=== PATIENT | female | born 1930 | race Caucasian/White ===

== ENCOUNTER 2016-05-06 07:47 | Outpatient (CLI) | payer MEDICARE, OTHER | END 2016-05-06 07:48 | disposition home or self-care (01) | DX: I10 Essential (primary) hypertension (principal); E11.9 Type 2 diabetes mellitus without complications; E78.5 Hyperlipidemia, unspecified; I48.91 Unspecified atrial fibrillation ==

== ENCOUNTER 2016-07-24 12:37 | Outpatient (CLI) | payer MEDICARE, OTHER | END 2016-07-24 12:38 | disposition home or self-care (01) | DX: I47.2 Ventricular tachycardia (principal); I51.7 Cardiomegaly; I34.0 Nonrheumatic mitral (valve) insufficiency; Z95.0 Presence of cardiac pacemaker ==

== ENCOUNTER 2016-07-29 07:25 | Outpatient (CLI) | payer MEDICARE, OTHER ==
[2016-07-29 13:05] LABS: CALCIUM 9.2 mg/dL (8.5-10.3); CREATININE 0.9 mg/dL (0.4-1.0); MAGNESIUM 1.7 mg/dL (1.7-2.8); POTASSIUM 3.5 mmol/L (3.5-5.0)
== END 2016-07-29 07:26 | disposition home or self-care (01) ==
LOC: LAB.WCP 07:25
PROVIDERS: ATTEND Internal Medicine
DX: I47.2 Ventricular tachycardia (principal)
CPT/HCPCS: 36415; 80048; 83735

== ENCOUNTER 2016-07-31 10:07 | Outpatient (CLI) | payer MEDICARE, OTHER ==
--- NOTE | 2016-08-01 15:24 | Mammography Report ---
DIGITAL SCREENING MAMMOGRAM: 07/31/2016 CLINICAL INDICATION: An 85-year-old with personal history of right breast cancer, status post lumpect tony and radiation therapy, for screening. COMPARISON: 07/2015, 07/2014, 04/2013, 12/2012, 05/2012, 04/2012, 03/2011, 02/2010, 01/2009. TECHNIQUE: Routine CC and MLO projections were obtained of the breasts. FINDINGS: The breasts again demonstrate heterogeneously dense fibroglandular parenchyma bilaterally. Postoperative and posttreatment changes in the right breast are stable. Postbiopsy changes in the le ft breast are stable. Coarse and punctate, typically benign calcifications are present. No suspicious masses, clustered microcalcifications, or regions of architectural distortion are identified. IMPRESSION: BENIGN FINDINGS. RECOMMENDATION: ROUTINE ANNUAL SCREENING UNLESS OTHERWISE CLINICALLY INDICATED. BIRADS CATEGORY 2-BENIGN FINDINGS. STANDARD QUALIFYING STATEMENTS 1. This examination was reviewed with the aid of Computer-Aided Detection (CAD). 2. A negative or benign imaging report should not delay biopsy if clinically suspicious findings are present. Consider surgical consultation if warranted. More than 5% of cancers are not identified by i maging. 3. Dense breasts may obscure an underlying neoplasm. JOB #: [id number] EXT JOB #:[id number]
== END 2016-07-31 10:08 | disposition home or self-care (01) ==
LOC: DI.N 10:07
PROVIDERS: ATTEND Family Medicine
DX: Z12.31 Encounter for screening mammogram for malignant neoplasm of breast (principal); Z85.3 Personal history of malignant neoplasm of breast
CPT/HCPCS: 77067

== ENCOUNTER 2017-06-10 08:00 | Outpatient (CLI) | payer MEDICARE, OTHER ==
[2017-06-10 13:42] LABS: HB2 TOTAL 13.2 g/dL; HEMOGLOBIN A1C 0.5 g/dL; HEMOGLOBIN A1C % 5.6 % (4.6-6.2)
[2017-06-10 13:53] LABS: ALBUMIN/GLOBULIN RATIO 1.7 (1.0-2.2); ALKALINE PHOSPHATASE 60 IU/L (42-121); ALT ALANINE AMINOTRANSFERASE 20 IU/L (10-60); AST ASPARTATE AMINOTRANSFERASE 49 IU/L (10-42); BILIRUBIN,TOTAL 1.3 mg/dL (0.2-1.0); BUN - BLOOD UREA NITROGEN 14 mg/dL (6-20); CARBON DIOXIDE - CO2 31 mmol/L (21-32); CHLORIDE 95 mmol/L (101-111); CHOL/HDL RATIO 2.6 (<4.4); CHOLESTEROL 214 mg/dL; CREATININE 0.8 mg/dL (0.4-1.0); GFR - MDRD 68 (>89); GLUCOSE 107 mg/dL (70-100); HDL CHOLESTEROL 81 mg/dL; LDL CHOLESTEROL,CALCULATED 114 mg/dL; LDL/HDL RATIO 1.4 (<4.4); SODIUM 131 mmol/L (135-145); TOTAL PROTEIN 6.4 g/dL (6.7-8.2); VLDL CHOLESTEROL 19 mg/dL
== END 2017-06-10 08:01 | disposition home or self-care (01) ==
LOC: LAB.WCP 08:00
PROVIDERS: ATTEND Family Medicine
DX: E78.5 Hyperlipidemia, unspecified (principal); E11.9 Type 2 diabetes mellitus without complications; I10 Essential (primary) hypertension; R74.8 Abnormal levels of other serum enzymes; I48.91 Unspecified atrial fibrillation
CPT/HCPCS: 36415; 80053; 80061; 83036; 83721

== ENCOUNTER → 2017-12-01 | Outpatient (CLI) | payer MEDICARE, OTHER ==
[2017-12-01 12:38] LABS: CALCIUM 9.3 mg/dL (8.5-10.3); CARBON DIOXIDE - CO2 27 mmol/L (21-32); CHLORIDE 95 mmol/L (101-111); GLUCOSE 108 mg/dL (70-100); SODIUM 134 mmol/L (135-145)
[2017-12-01 12:51] LABS: HEMOGLOBIN A1C 0.43 g/dL; HEMOGLOBIN A1C % 5.2 % (4.6-6.2)
[2017-12-01 13:05] LABS: BASOPHILS % (AUTO) 0.9 %; EOSINOPHILS # (AUTO) 0.1 10^3/uL (0.0-0.7); EOSINOPHILS % (AUTO) 4.1 %; HGB - HEMOGLOBIN 12.8 g/dL (12.0-16.0); LYMPHOCYTES # (AUTO) 1.5 10^3/uL (1.5-3.5); LYMPHOCYTES % (AUTO) 43.2 %; MEAN CORPUSCULAR HEMOGLOBIN 32.9 pg (27.0-31.0); MEAN CORPUSCULAR HGB CONC 33.6 g/dL (32.0-36.0); MEAN CORPUSCULAR VOLUME 97.9 fL (81.0-99.0); MEAN PLATELET VOLUME 8.4 fL (7.9-10.8); MONOCYTES # (AUTO) 0.6 10^3/uL (0.0-1.0); MONOCYTES % (AUTO) 16.6 %; NEUTROPHILS # (AUTO) 1.3 10^3/uL (1.5-6.6); NEUTROPHILS % (AUTO) 35.2 %; PLT - PLATELET COUNT 252 10^3/uL (130-450); RED BLOOD COUNT 3.89 10^6/uL (4.20-5.40); RED CELL DISTRIBUTION WIDTH 14.1 % (12.0-15.0); WHITE BLOOD COUNT 3.6 x10^3/uL (4.8-10.8)
[2017-12-01 13:09] LABS: ALBUMIN/GLOBULIN RATIO 1.6 (1.0-2.2); ALKALINE PHOSPHATASE 66 IU/L (42-121); ALT ALANINE AMINOTRANSFERASE 16 IU/L (10-60); AST ASPARTATE AMINOTRANSFERASE 48 IU/L (10-42); BILIRUBIN,TOTAL 1.2 mg/dL (0.2-1.0); BUN - BLOOD UREA NITROGEN 15 mg/dL (6-20); CHOL/HDL RATIO 2.4 (<4.4); CHOLESTEROL 217 mg/dL; CREATININE 0.8 mg/dL (0.4-1.0); GFR - MDRD 68 (>89); HDL CHOLESTEROL 92 mg/dL; LDL CHOLESTEROL,CALCULATED 106 mg/dL; LDL/HDL RATIO 1.2 (<4.4); TOTAL PROTEIN 6.5 g/dL (6.7-8.2); VLDL CHOLESTEROL 19 mg/dL
== END ==
LOC: LAB.WCP 08:00
PROVIDERS: ATTEND Family Medicine
DX: E11.9 Type 2 diabetes mellitus without complications (principal); E78.5 Hyperlipidemia, unspecified; F32.9 Major depressive disorder, single episode, unspecified
CPT/HCPCS: 36415; 80053; 80061; 83036; 83721; 84443; 85025

== ENCOUNTER 2018-07-12 14:23 | Outpatient (CLI) | payer MEDICARE, OTHER ==
[2018-07-12 19:02] LABS: BASOPHILS % (AUTO) 0.9 %; EOSINOPHILS # (AUTO) 0.1 10^3/uL (0.0-0.7); EOSINOPHILS % (AUTO) 1.9 %; HGB - HEMOGLOBIN 12.1 g/dL (12.0-16.0); LYMPHOCYTES % (AUTO) 22.9 %; MEAN CORPUSCULAR HGB CONC 34.1 g/dL (32.0-36.0); MEAN CORPUSCULAR VOLUME 96.9 fL (81.0-99.0); MEAN PLATELET VOLUME 8.8 fL (7.9-10.8); MONOCYTES # (AUTO) 0.5 10^3/uL (0.0-1.0); MONOCYTES % (AUTO) 11.5 %; NEUTROPHILS # (AUTO) 2.8 10^3/uL (1.5-6.6); NEUTROPHILS % (AUTO) 62.8 %; PLT - PLATELET COUNT 245 10^3/uL (130-450); RED BLOOD COUNT 3.67 10^6/uL (4.20-5.40); RED CELL DISTRIBUTION WIDTH 13.8 % (12.0-15.0); WHITE BLOOD COUNT 4.4 x10^3/uL (4.8-10.8)
[2018-07-12 19:20] LABS: ALBUMIN 4.1 g/dL (3.2-5.5); ALKALINE PHOSPHATASE 80 IU/L (42-121); ALT ALANINE AMINOTRANSFERASE 23 IU/L (10-60); AST ASPARTATE AMINOTRANSFERASE 58 IU/L (10-42); BILIRUBIN,TOTAL 0.9 mg/dL (0.2-1.0); BUN - BLOOD UREA NITROGEN 18 mg/dL (6-20); CALCIUM 9.2 mg/dL (8.5-10.3); CARBON DIOXIDE - CO2 30 mmol/L (21-32); CHLORIDE 92 mmol/L (101-111); CHOLESTEROL 211 mg/dL; CREATININE 0.7 mg/dL (0.4-1.0); GFR - MDRD 80 (>89); GLUCOSE 115 mg/dL (70-100); HDL CHOLESTEROL 103 mg/dL; LDL CHOLESTEROL,CALCULATED 97 mg/dL; LDL/HDL RATIO 0.9 (<4.4); SODIUM 129 mmol/L (135-145); TOTAL PROTEIN 6.2 g/dL (6.7-8.2); VLDL CHOLESTEROL 11 mg/dL
[2018-07-12 19:26] LABS: CREATININE,URINE 63.2 mg/dL; MICROALBUM/CREATININE RATIO,UR 9.5 ug/mg (<30.0); MICROALBUMIN,URINE 0.6 mg/dL (0-300.0)
[2018-07-12 19:54] LABS: HB2 TOTAL 12.6 g/dL; HEMOGLOBIN A1C 0.5 g/dL; HEMOGLOBIN A1C % 5.8 % (4.6-6.2)
== END 2018-07-12 14:24 | disposition home or self-care (01) ==
LOC: LAB.WCP 14:23
PROVIDERS: ATTEND Family Medicine
DX: E11.9 Type 2 diabetes mellitus without complications (principal); E78.5 Hyperlipidemia, unspecified; I10 Essential (primary) hypertension; F32.9 Major depressive disorder, single episode, unspecified; Z13.89 Encounter for screening for other disorder
CPT/HCPCS: 36415; 80053; 80061; 82043; 82570; 83036; 83721; 84443; 85025; 86765

== ENCOUNTER 2018-07-23 08:00 | Outpatient (CLI) | payer MEDICARE, OTHER ==
[2018-07-23 18:57] LABS: CALCIUM 9.3 mg/dL (8.5-10.3); CREATININE 0.9 mg/dL (0.4-1.0)
== END 2018-07-23 23:59 | disposition home or self-care (01) ==
LOC: LAB.WCP 08:00
PROVIDERS: ATTEND Family Medicine
DX: E87.1 Hypo-osmolality and hyponatremia (principal)
CPT/HCPCS: 36415; 80048

== ENCOUNTER 2018-08-05 06:38 | Day surgery (SDC) | payer MEDICARE, OTHER ==
[~2018-08-05 06:38] MED LIST: CYCLOPENTOLATE 1% OPHTH DROPS 2 ML ONE; KETOROLAC 0.45% OPHTH DROPS ONE; PHENYLEPHRINE 2.5% OPHTH 2 ML DROPS ONE; PROPARACAINE 0.5% OPHTH DROPS 15 ML ONE
[2018-08-05] MEDS ORDERED: PHENYLEPHRINE 2.5% OPHTH 2 ML DROPS RIGHTEYE ONE (07:05)
[2018-08-05] MEDS ORDERED: KETOROLAC 0.45% OPHTH DROPS RIGHTEYE ONE (07:05)
[2018-08-05] MEDS ORDERED: CYCLOPENTOLATE 1% OPHTH DROPS 2 ML RIGHTEYE ONE (07:05)
[2018-08-05] MEDS ORDERED: PROPARACAINE 0.5% OPHTH DROPS 15 ML RIGHTEYE ONE ×2 (07:05→08:17)
[2018-08-05] MEDS ORDERED: TIMOLOL 0.5% OPHTH DROPS ONE (07:09)
[2018-08-05] MEDS ORDERED: BRIMONIDINE 0.2% OPHTH DROPS 5 ML ONE (07:09)
[2018-08-05] MEDS ORDERED: EPINEPHrine 1 MG/ML AMP ONE (07:09)
[2018-08-05] MEDS ORDERED: VANCOMYCIN OPHTHALMI 8MG/0.8ML 8 MG/0.8 ML SYRINGE IO ONE ×2 (07:09→08:17)
[2018-08-05] MEDS ORDERED: BSS/LIDOCAINE/EPINEPHRINE 1 ML SYRINGE ONE (07:09)
[2018-08-05] MEDS ORDERED: TRIAMCIN/MOXIFLOX OPHTHALMIC 0.6 ML VIAL IO ONE ×2 (07:09→08:17)
[2018-08-05] MEDS ORDERED: LACTATED RINGERS 500 ML IV ONE (07:13)
--- NOTE | 2018-08-05 07:22 | ANESTHESIA ---
Pre-Anesthesia VS, & Labs - Diagnosis right senile combined cataract - Procedure laser assisted extraction cataract with right lens implant Vital Signs: Temp Pulse Resp BP Pulse Ox 36.5 C 87 16 153/92 H 97 08/05/18 06:56 08/05/18 06:56 08/05/18 06:56 08/05/18 06:56 08/05/18 06:56 Height 5 ft 7 in Weight (kg) 69.5 kg Body Mass Index 25.0 - NPO >8 hours - Is Patient ?: Not Applicable Home Medications and Allergies Home Medications: Ambulatory Orders Chlorthalidone 25 mg PO DAILY 08/05/18 Clonidine HCl [Kapvay] 0.1 mg PO TID 04/10/13 Losartan [Cozaar] 100 mg PO DAILY 04/10/13 Nebivolol HCl [Bystolic] 10 mg PO DAILY 04/10/13 Rivaroxaban [Xarelto] 20 mg PO DAILY 06/12/14 Chlorthalidone 25 mg PO DAILY 08/05/18 Allergies/Adverse Reactions: Allergies Allergy/AdvReac Type Severity Reaction Status Date / Time amlodipine Allergy confusion Verified 04/10/13 14:40 cefuroxime axetil * Allergy Unknown Verified 04/10/13 14:40 [From Ceftin] lisinopril Allergy facial Verified 04/10/13 14:40 swelling propranolol HCl * Allergy Unknown Verified 04/10/13 14:40 [From Inderal LA] verapamil [Verapamil] Allergy Unknown Verified 04/10/13 14:40 Anes History & Medical History - Anesthetic History Anesthesia Complications: reports: No previous complications Family history of Anesthesia Complications: Denies Family history of Malignant Hyperthermia: Denies - Medical History Cardiovascular: reports: Hypertension, High cholesterol, Atrial fibrillation, Other (pacemaker) Pulmonary: reports: None Gastrointestinal: reports: None Urinary: reports: None Musculoskeletal: reports: Osteoarthritis Endocrine/Autoimmune: reports: None Skin: reports: None Smoking Status: Never smoker - Surgical History General: Appendectomy Cardiothoracic: Pacemaker Gynecologic: Hysterectomy Orthopedic: Knee replacement Exam General: Alert, Oriented x3, Cooperative, No acute distress Dental: Other (caps) Mouth Openin Fingerbreadth Neck Mobility: Normal Mallampati classification: II Thyromental Distance: greater than 6 cm Respiratory: Lungs clear, Normal breath sounds, No respiratory distress, No accessory muscle use Cardiovascular: Normal S1, Normal S2 Plan Anesthesia Type: MAC Consent for Procedure(s) Verified and Reviewed: Yes Code Status: Attempt Resuscitation ASA classification: 3-Severe systemic disease Is this case an emergency?: No
[2018-08-05] MEDS ORDERED: BRIMONIDINE 0.2% OPHTH DROPS 5 ML OPTH ONE (08:15)
[2018-08-05] MEDS ORDERED: EPINEPHrine 1 MG/ML AMP IVP ONE (08:15)
[2018-08-05] MEDS ORDERED: CHONDR SULF/HYALURONATE SYRINGE IO ONE (08:16)
[2018-08-05] MEDS ORDERED: TIMOLOL 0.5% OPHTH DROPS OPTH ONE (08:16)
[2018-08-05] MEDS ORDERED: BSS/LIDOCAINE/EPINEPHRINE 1 ML SYRINGE IO ONE (08:17)
[2018-08-05] MEDS ORDERED: fentaNYL 100 MCG/2 ML VIAL IVP ONE (08:22)
[2018-08-05] MEDS ORDERED: MIDAZOLAM 2 MG/2 ML VIAL IVP ONE (08:22)
[2018-08-05 08:48] VITALS: BP 141/77
--- NOTE | 2018-08-05 08:58 | OPERATIVE REPORT ---
DATE OF SERVICE: 08/05/2018 Physician: Brooks Mckeon MD PREOPERATIVE DIAGNOSIS: Visually significant cataract, right eye. This was her first cataract surge ry. POSTOPERATIVE DIAGNOSIS: Visually significant cataract, right eye. This was her first cataract surg parmjit. DESCRIPTION OF PROCEDURE: Phacoemulsification with posterior chamber intraocular lens implant with l aser assist, right eye. SURGEON: Brooks Mckeon MD ANESTHESIA: Monitored anesthesia care. COMPLICATIONS: None. OPERATIVE INDICATIONS: This is an 87-year-old woman with progressive vision loss in the right eye du e to 2 to 3+ nuclear and 3+ cortical cataract. Best corrected visual acuity was 20/40, with glare to 20/150 in the right eye. Indications for surgery were overall decrease in vision, difficulty seeing words on the computer screen, difficulty reading, difficulty driving in low light or at night, diffi culty driving at night because of headlights on other vehicles, and difficulty with glare and bright lights in any situation. She was consented at length concerning risks and benefits of cataract surge ry, after which she expressed a desire to proceed with surgery. OPERATIVE PROCEDURE: Patient was taken into OR #3 and placed under monitored anesthesia care. A eula gical timeout was conducted confirming the correct patient, correct procedure, and correct surgical s ite. She was placed on the LenSx laser and her eye docked to the laser interface. The laser perform ed the capsulotomy, lens softening, phaco wounds and arcuate keratotomy incisions. She was then move d to the operating microscope, given topical anesthesia, and prepped and draped in the usual sterile fashion. The eye was entered at the 12 and 9 o'clock positions. Intracameral Shugarcaine was inject ed into the anterior chamber, followed by Viscoat. A capsulorrhexis flap created by the LenSx laser was removed from the anterior chamber. The nucleus was hydrodissected and phacoemulsified. The machelle ex was evacuated using automated infusion and aspiration. Provisc was injected into the capsular bag , and a 22.0 diopter intraocular lens inserted in the bag. Approximately 0.8 mL of a mixture of tria mcinolone, moxifloxacin and vancomycin was injected subconjunctivally in the superior quadrant for in fection and inflammation prophylaxis. I and A was used to evacuate the viscoelastic materials. The eye was inflated to physiologic pressure using balanced salt solution and found to be watertight. Brian brody was taken from the operating room in good condition and given postoperative instructions. TD: 08/05/2018 08:45
== END 2018-08-05 06:39 | disposition home or self-care (01) ==
LOC: SDS 06:38
PROVIDERS: ATTEND Ophthalmology
PROC: 08RJ3JZ Replacement of Right Lens with Synthetic Substitute, Percutaneous Approach (ICD-10-PCS; principal; 2018-08-05 08:00)
DX: H25.811 Combined forms of age-related cataract, right eye (principal); H52.201 Unspecified astigmatism, right eye; I10 Essential (primary) hypertension; I48.91 Unspecified atrial fibrillation; Z95.0 Presence of cardiac pacemaker; Z79.01 Long term (current) use of anticoagulants; Z79.899 Other long term (current) drug therapy
CPT/HCPCS: 66984; A9270; J3490; V2632

== ENCOUNTER 2018-09-01 08:00 | Outpatient (CLI) | payer MEDICARE, OTHER ==
[2018-09-03 13:02] LABS: HSV 2 IGG TYPE SPECIFIC AB <0.90 index
== END 2018-09-01 23:59 | disposition home or self-care (01) ==
LOC: LAB.WCP 08:00
PROVIDERS: ATTEND Physician Assistant
DX: K13.70 Unspecified lesions of oral mucosa (principal)
CPT/HCPCS: 36415; 81599; 86695; 86696

== ENCOUNTER 2018-10-07 06:37 | Day surgery (SDC) | payer MEDICARE, OTHER ==
[2018-10-07] MEDS ORDERED: PHENYLEPHRINE 2.5% OPHTH 2 ML DROPS ONE (06:42)
[2018-10-07] MEDS ORDERED: LACTATED RINGERS 500 ML IV ONE (06:57)
[2018-10-07] MEDS ORDERED: PROPARACAINE 0.5% OPHTH DROPS 15 ML LEFTEYE ONE (07:03)
[2018-10-07] MEDS ORDERED: KETOROLAC 0.45% OPHTH DROPS LEFTEYE ONE (07:03)
[2018-10-07] MEDS ORDERED: CYCLOPENTOLATE 1% OPHTH DROPS 2 ML LEFTEYE ONE (07:03)
[2018-10-07] MEDS ORDERED: PHENYLEPHRINE 2.5% OPHTH 2 ML DROPS LEFTEYE ONE (07:03)
--- NOTE | 2018-10-07 07:28 | ANESTHESIA ---
Pre-Anesthesia VS, & Labs - Diagnosis L senile combined cataract - Procedure L laser assist cataract excision with IOL Vital Signs: Temp Pulse Resp BP Pulse Ox 36.4 C L 61 15 156/83 H 96 10/07/18 06:58 10/07/18 06:58 10/07/18 06:58 10/07/18 06:58 10/07/18 06:58 Height 5 ft 7 in Weight (kg) 71 kg Body Mass Index 25.0 - NPO >8 hours - Is Patient ?: No Home Medications and Allergies Clonidine HCl [Kapvay] 0.1 mg PO TID 04/10/13 Losartan [Cozaar] 100 mg PO DAILY 04/10/13 Nebivolol HCl [Bystolic] 10 mg PO DAILY 04/10/13 Rivaroxaban [Xarelto] 20 mg PO DAILY 06/12/14 Chlorthalidone 25 mg PO DAILY 08/05/18 Allergies/Adverse Reactions: Allergies Allergy/AdvReac Type Severity Reaction Status Date / Time amlodipine Allergy confusion Verified 10/07/18 06:58 cefuroxime axetil * Allergy Unknown Verified 10/07/18 06:58 [From Ceftin] lisinopril Allergy facial Verified 10/07/18 06:58 swelling propranolol HCl * Allergy Unknown Verified 10/07/18 06:58 [From Inderal LA] verapamil [Verapamil] Allergy Unknown Verified 10/07/18 06:58 Anes History & Medical History - Anesthetic History Anesthesia Complications: reports: No previous complications Family history of Anesthesia Complications: Denies Family history of Malignant Hyperthermia: Denies - Medical History Cardiovascular: reports: Hypertension, High cholesterol, Atrial fibrillation, Other Pulmonary: reports: None Gastrointestinal: reports: None Urinary: reports: None Musculoskeletal: reports: Osteoarthritis Endocrine/Autoimmune: reports: None Skin: reports: None Smoking Status: Never smoker - Surgical History General: Appendectomy Cardiothoracic: Pacemaker Gynecologic: Hysterectomy Orthopedic: Knee replacement Exam General: Oriented x3, Cooperative Dental: WNL (caps t/o) Mouth Openin Fingerbreadth Neck Mobility: Normal Mallampati classification: II Thyromental Distance: 4-6 cm Respiratory: Lungs clear, Normal breath sounds Cardiovascular: Regular rate (pacer) Neurological: Normal speech Mental/Cognitive Status: Alert/Oriented X3, Normal for patient Cognitive Status: Within normal limits Plan Anesthesia Type: MAC Consent for Procedure(s) Verified and Reviewed: Yes Code Status: Attempt Resuscitation ASA classification: 3-Severe systemic disease Is this case an emergency?: No
[2018-10-07] MEDS ORDERED: BRIMONIDINE 0.2% OPHTH DROPS 5 ML OPTH ONE (08:29)
[2018-10-07] MEDS ORDERED: CHONDR SULF/HYALURONATE SYRINGE IO ONE (08:30)
[2018-10-07] MEDS ORDERED: BSS/LIDOCAINE/EPINEPHRINE 1 ML SYRINGE IO ONE (08:30)
[2018-10-07] MEDS ORDERED: EPINEPHrine 1 MG/ML AMP IVP ONE (08:30)
[2018-10-07] MEDS ORDERED: TIMOLOL 0.5% OPHTH DROPS OPTH ONE (08:30)
[2018-10-07] MEDS ORDERED: TRIAMCIN/MOXIFLOX OPHTHALMIC 0.6 ML VIAL IO ONE (08:31)
[2018-10-07] MEDS ORDERED: VANCOMYCIN OPHTHALMI 8MG/0.8ML 8 MG/0.8 ML SYRINGE IO ONE (08:31)
[2018-10-07] MEDS ORDERED: fentaNYL 100 MCG/2 ML VIAL IVP ONE (08:45)
[2018-10-07] MEDS ORDERED: MIDAZOLAM 2 MG/2 ML VIAL IVP ONE (08:45)
[2018-10-07 08:56] VITALS: BP 152/70
--- NOTE | 2018-10-07 10:14 | OPERATIVE REPORT ---
DATE OF SERVICE: 10/07/2018 Physician: Brooks Mckeon MD PREOPERATIVE DIAGNOSIS: Visually significant cataract, left eye. Cataract surgery was performed on the right eye on 08/05/2018. POSTOPERATIVE DIAGNOSIS: Visually significant cataract, left eye. Cataract surgery was performed on the right eye on 08/05/2018 PROCEDURE: Phacoemulsification with posterior chamber intraocular lens implant, left eye with laser assist. SURGEON: Brooks Mckeon MD ANESTHESIA: Monitored anesthesia care. COMPLICATIONS: None. OPERATIVE INDICATIONS: This is an 87-year-old woman with progressive vision loss in the left eye due to 2+ nuclear sclerotic and 3+ cortical cataract. Best corrected visual acuity was 20/40, with glare to 20/150 in the left eye. Indications for surgery are overall decrease in vision, difficulty driving in low light or at night, difficulty driving at night because of headlights from other vehicles, and difficulty with glare or bright lights in any situation. She was consented at length concerning risks and benefits of cataract surgery, after which she expressed a desire to proceed with surgery. OPERATIVE PROCEDURE: Patient was taken into OR #3 and placed under monitored anesthesia care. Surgical timeout was conducted confirming correct patient, correct procedure, and correct surgical site. She was placed on the LenSx laser, and her eye was docked to the laser interface. Laser performed the capsulotomy, lens softening, phaco wounds, and arcuate keratotomy incisions. She was then moved to the operating microscope, given topical anesthesia, and prepped and draped in the usual sterile fashion. The eye was entered at the 6 and 3-o'clock positions. Intracameral Shugarcaine was injected into the anterior chamber, followed by Viscoat. The capsulorrhexis flap created by the LenSx laser was removed from the anterior chamber. Nucleus was hydrodissected and phacoemulsified. Cortex was evacuated using automated infusion and aspiration; however, at the end of that, there was noted to be a small rent under the wound peripherally. It was elected to place the IOL in the bag and rotate the haptics 90 degrees away from the temporal rent. The bag was filled with Provisc, the IOL inserted and rotated clockwise out of the area of the rent. A 20.5-diopter intraocular lens inserted in the bag. Unfortunately, the haptic still got caught in the rent and it took quite a bit of manipulation to rotate it out and about 110 to 120 degrees in the clockwise direction to get the lens to center. No vitreous presented to the wound until later in the operation. Approximately 0.8 mL of a mixture of triamcinolone, moxifloxacin, and vancomycin was injected subconjunctivally in the superior quadrant for infection and inflammation prophylaxis. I and A was used to evacuate the viscoelastic materials; however, at this time, the IOL was decentering now temporally, although there was also a single strand of vitreous that was removed with a Weck cell and scissors. No further vitreous presented. The IOL was then pushed superonasally for it to be centered. The eye was inflated to physiologic pressure using balanced salt solution and found to be watertight. Patient was taken from the operating room in good condition and given postoperative instructions. TD: 10/07/2018 08:56 REVISED Removed edit flag 10/10/18jll Orig. signed 10/07/18@1452 HERMES
== END 2018-10-07 06:38 | disposition home or self-care (01) ==
LOC: SDS 06:37
PROVIDERS: ATTEND Ophthalmology
PROC: 08RK3JZ Replacement of Left Lens with Synthetic Substitute, Percutaneous Approach (ICD-10-PCS; principal; 2018-10-07 08:00)
DX: H25.812 Combined forms of age-related cataract, left eye (principal); I10 Essential (primary) hypertension; Z95.0 Presence of cardiac pacemaker; I48.91 Unspecified atrial fibrillation
CPT/HCPCS: 66984; A9270; J3490; V2632

== ENCOUNTER 2018-10-28 09:29 | Day surgery (SDC) | payer MEDICARE, OTHER ==
[~2018-10-28 09:29] MED LIST changes: +CARBACHOL 0.01% 1.5 ML VIAL IO ONE; -CYCLOPENTOLATE 1% OPHTH DROPS 2 ML ONE; -KETOROLAC 0.45% OPHTH DROPS ONE; -PHENYLEPHRINE 2.5% OPHTH 2 ML DROPS ONE; -PROPARACAINE 0.5% OPHTH DROPS 15 ML ONE
[2018-10-28] MEDS ORDERED: MIDAZOLAM 2 MG/2 ML VIAL IVP ONE (09:30)
[2018-10-28] MEDS ORDERED: fentaNYL 100 MCG/2 ML VIAL IVP ONE (09:30)
[2018-10-28] MEDS ORDERED: KETOROLAC 0.45% OPHTH DROPS ONE (09:55)
[2018-10-28] MEDS ORDERED: PROPARACAINE 0.5% OPHTH DROPS 15 ML ONE (09:55)
[2018-10-28] MEDS ORDERED: LACTATED RINGERS 500 ML IV ONE (09:57)
[2018-10-28] MEDS ORDERED: KETOROLAC 0.45% OPHTH DROPS LEFTEYE ONE (09:57)
[2018-10-28] MEDS ORDERED: PROPARACAINE 0.5% OPHTH DROPS 15 ML LEFTEYE ONE (09:57)
--- NOTE | 2018-10-28 10:02 | ANESTHESIA ---
Pre-Anesthesia VS, & Labs - Diagnosis Subluxed left eye implant - Procedure Remove subluxed eye implant, IOL implant replacement Vital Signs: Temp Pulse Resp BP Pulse Ox 36.7 C 72 16 158/91 H 97 10/28/18 09:46 10/28/18 09:46 10/28/18 09:46 10/28/18 09:46 10/28/18 09:46 Height 5 ft 7 in Weight (kg) 70 kg Body Mass Index 25.0 - NPO >8 hours - Is Patient ?: Not Applicable - Lab Results Lab results reviewed: No Home Medications and Allergies Clonidine HCl [Kapvay] 0.1 mg PO BID 04/10/13 Nebivolol HCl [Bystolic] 10 mg PO DAILY 04/10/13 Rivaroxaban [Xarelto] 10 mg PO DAILY 06/12/14 Allergies/Adverse Reactions: Allergies Allergy/AdvReac Type Severity Reaction Status Date / Time amlodipine Allergy confusion Verified 10/07/18 06:58 cefuroxime axetil * Allergy Unknown Verified 10/07/18 06:58 [From Ceftin] lisinopril Allergy facial Verified 10/07/18 06:58 swelling propranolol HCl * Allergy Unknown Verified 10/07/18 06:58 [From Inderal LA] verapamil [Verapamil] Allergy Unknown Verified 10/07/18 06:58 Anes History & Medical History - Anesthetic History Anesthesia Complications: reports: No previous complications Family history of Anesthesia Complications: Denies Family history of Malignant Hyperthermia: Denies - Medical History Cardiovascular: reports: Hypertension Pulmonary: reports: None Gastrointestinal: reports: None Urinary: reports: None Neuro: reports: None Musculoskeletal: reports: None Endocrine/Autoimmune: reports: None Blood Disorders: reports: None Skin: reports: None Smoking Status: Never smoker - Surgical History General: Appendectomy Eyes Ears Nose Throat (EENT): Cataracts Cardiothoracic: Pacemaker Gynecologic: Hysterectomy Orthopedic: Knee replacement Exam General: Alert, Oriented x3, Cooperative Dental: WNL Mouth Opening: Greater than 4 Fingerbreadths Neck Mobility: Normal Mallampati classification: I Thyromental Distance: greater than 6 cm Respiratory: Lungs clear Cardiovascular: Regular rate Extremities: No cyanosis Mental/Cognitive Status: Alert/Oriented X3 Cognitive Status: Within normal limits Plan Anesthesia Type: MAC Consent for Procedure(s) Verified and Reviewed: Yes Code Status: Attempt Resuscitation ASA classification: 3-Severe systemic disease Is this case an emergency?: No
[2018-10-28] MEDS ORDERED: BRIMONIDINE 0.2% OPHTH DROPS 5 ML OPTH ONE (10:40)
[2018-10-28] MEDS ORDERED: EPINEPHrine 1 MG/ML AMP IVP ONE (10:40)
[2018-10-28] MEDS ORDERED: BSS/LIDOCAINE/EPINEPHRINE 1 ML SYRINGE IO ONE (10:41)
[2018-10-28] MEDS ORDERED: CHONDR SULF/HYALURONATE SYRINGE IO ONE (10:41)
[2018-10-28] MEDS ORDERED: TIMOLOL 0.5% OPHTH DROPS OPTH ONE (10:41)
[2018-10-28] MEDS ORDERED: VANCOMYCIN OPHTHALMI 8MG/0.8ML 8 MG/0.8 ML SYRINGE IO ONE (10:42)
[2018-10-28] MEDS ORDERED: TRIAMCIN/MOXIFLOX OPHTHALMIC 0.6 ML VIAL IO ONE ×2 (10:42→10:43)
[2018-10-28] MEDS ORDERED: TRIAMCINOLONE PF 40 MG/ML VIAL IO ONE ×2 (10:42)
[2018-10-28] MEDS ORDERED: BRIMONIDINE 0.2% OPHTH DROPS 5 ML ONE (10:43)
[2018-10-28] MEDS ORDERED: EPINEPHrine 1 MG/ML AMP ONE (10:43)
[2018-10-28] MEDS ORDERED: TIMOLOL 0.5% OPHTH DROPS ONE (10:44)
[2018-10-28] MEDS ORDERED: BSS/LIDOCAINE/EPINEPHRINE 1 ML SYRINGE ONE (10:45)
[2018-10-28 11:33] VITALS: BP 147/76
--- NOTE | 2018-10-28 17:00 | PROCEDURE REPORT ---
DATE OF SERVICE: 10/28/2018 Physician: Brooks Mckeon MD PREOPERATIVE DIAGNOSIS: Subluxed intraocular lens, left eye after a cataract surgery done on 019. POSTOPERATIVE DIAGNOSIS: Subluxed intraocular lens, left eye after a cataract surgery done on 2018. NAME OPERATIVE PROCEDURE: Intraocular lens exchange, removing the posterior chamber intraocular lens and replacing it with an anterior chamber intraocular lens, left eye. SURGEON: Brooks Mckeon MD ANESTHESIA: Monitored anesthesia care. COMPLICATIONS: None. OPERATIVE INDICATIONS: This is an 87-year-old woman with vision loss postoperative day #1 from intra ocular lens surgery. Her posterior chamber lens was unstable and started falling through a hole in t he posterior chamber and was displaced temporally. There also appeared to be from vitreous that was coming up into the anterior chamber. At that time, she had a Best corrected visual acuity of count f ingers at 1 foot in the left eye. She was consented concerning risks and benefits of intraocular julien s exchange, after which she expressed a desire to proceed with surgery. OPERATIVE PROCEDURE: The patient was taken to OR #3 and placed under monitored anesthesia care. A s urgical timeout was conducted confirming correct patient, correct procedure, and correct surgical sit e. She was given topical anesthesia, then prepped and draped in the usual sterile fashion. The eye was entered through the previous phaco wounds at 6 and 3 o'clock positions. Of note, intraocular lens had moved again, and one of the haptics was now in the anterior chamber having pushed through the pu pil. Intracameral Shugarcaine was injected into the anterior chamber, followed by Viscoat. The IOL haptic was grasped and using a Kuglen hook to get the iris out of the way, the entire IOL was brought up into the anterior chamber. The phaco wound was then enlarged to 6 mm since an ACL and IOL was go ing to go in and that posterior chamber IOL was removed through the 6 mm surgical wound. Triesence w as injected into the anterior chamber to identify any vitreous and then wet vitrectomy of anterior ch marilia was conducted with the vitrector on cut [TIME: 03:19] The anterior chamber was filled wit h viscoelastic material and a sheets glide was slid through the wound to the opposite angle and the a nterior chamber IOL power 17.0 was slid over the sheets glide and into the anterior chamber, engaging the temporal angle. The sheets glide was removed and the trailing haptics were inserted into the an terior chamber to engage the temporal angle. The vitrector was also used to produce a nasal PI to pr event pupillary block. Miochol was injected into the anterior chamber to bring the pupil down. Infus ion and aspiration was then used to remove the viscoelastic from the anterior chamber. Three sutures were placed across the 6 mm wound. The eye was filled with balanced salt solution and approximately 0.8 mL of a mixture of triamcinolone, moxifloxacin and vancomycin was injected subconjunctival in th e superior quadrant for infection and inflammation prophylaxis. The eye was verified to be watertigh t and the surgery ended. The patient was taken from the operating room in good condition and given p ostoperative instructions. TD: 10/28/2018 11:24
== END 2018-10-28 09:30 | disposition home or self-care (01) ==
LOC: SDS 09:29
PROVIDERS: ATTEND Ophthalmology
PROC: 08RK3JZ Replacement of Left Lens with Synthetic Substitute, Percutaneous Approach (ICD-10-PCS; 2018-10-28)
PROC: 08PK3JZ Removal of Synthetic Substitute from Left Lens, Percutaneous Approach (ICD-10-PCS; principal; 2018-10-28 10:30)
DX: T85.22XA Displacement of intraocular lens, initial encounter (principal); Y77.3 Surgical instruments, materials and ophthalmic devices (including sutures) associated with adverse incidents; Y83.1 Surgical operation with implant of artificial internal device as the cause of abnormal reaction of the patient, or of later complication, without mention of misadventure at the time of the procedure; I10 Essential (primary) hypertension; Z79.899 Other long term (current) drug therapy; Z95.0 Presence of cardiac pacemaker; Z98.42 Cataract extraction status, left eye
CPT/HCPCS: 66986; A9270; J3300; J3490; V2632

== ENCOUNTER 2018-10-29 20:17 | Outpatient (CLI) | payer MEDICARE, OTHER | END 2018-10-29 20:18 | disposition critical access hospital (66) | LOC: EMS 20:17 | PROVIDERS: ATTEND Surgery | DX: S81.801A Unspecified open wound, right lower leg, initial encounter (principal); X58.XXXA Exposure to other specified factors, initial encounter; Y92.009 Unspecified place in unspecified non-institutional (private) residence as the place of occurrence of the external cause | CPT/HCPCS: A0425; A0429 ==

== ENCOUNTER 2018-10-29 20:38 | Emergency (ER) | payer MEDICARE, OTHER ==
--- NOTE | 2018-10-29 20:45 | ED Physician Documentation ---
PD HPI LOWER EXT INJURY - Stated complaint Stated Complaint: RIGHT LEG BLEEDING S/P SCRATCH - Chief complaint Chief Complaint: Ext Problem - History obtained from History obtained from: Patient, EMS - History of Present Illness PD HPI LOW EXT INJURY LOCATION: Right, Lower leg Type of injury: Other (scratched) Where injury occurred: Home Timing - onset: Today Timing - duration: Minutes Timing - details: Abrupt onset, Now resolved Improved by: Dressing Worsened by: Moving, Palpating Associated symptoms: No: Weakness, Numbness, Tingling, Swelling, Discolored Contributing factors: Anticoagulated Similar symptoms before: Has not had sx before Recently seen: Not recently seen - Additional information Additional information: 87-year-old female with a history of atrial fibrillation who is on Xarelto scratched her right calf this evening and it began to bleed profusely. She was unable to control bleeding with direct pressure and she called the ambulance. Paramedics arrived to find a hemorrhaging leg with a fair amount of blood from a single spot. They were able to apply direct pressure and place a pressure dressing which has controlled the bleeding. Review of Systems Constitutional: denies: Fever Respiratory: denies: Cough GI: denies: Vomiting PD PAST MEDICAL HISTORY - Past Medical History Cardiovascular: Hypertension Respiratory: None Neuro: None Endocrine/Autoimmune: None GI: None : None HEENT: None Psych: None Musculoskeletal: None Derm: None - Past Surgical History Past Surgical History: Yes General: Appendectomy Ortho: Knee replacement /ANNEALER: Hysterectomy Cardiovascular: Pacemaker HEENT: Cataracts - Present Medications Home Medications: Ambulatory Orders Medication Instructions Recorded Confirmed Clonidine HCl [Kapvay] 0.1 mg PO BID 04/10/13 10/28/18 Nebivolol HCl [Bystolic] 10 mg PO DAILY 04/10/13 10/28/18 Rivaroxaban [Xarelto] 10 mg PO DAILY 06/12/14 10/28/18 - Allergies Allergies/Adverse Reactions: Allergies Allergy/AdvReac Type Severity Reaction Status Date / Time amlodipine Allergy confusion Verified 10/07/18 06:58 cefuroxime axetil * Allergy Unknown Verified 10/07/18 06:58 [From Ceftin] lisinopril Allergy facial Verified 10/07/18 06:58 swelling propranolol HCl * Allergy Unknown Verified 10/07/18 06:58 [From Inderal LA] verapamil [Verapamil] Allergy Unknown Verified 10/07/18 06:58 - Social History Does the pt smoke?: No Smoking Status: Never smoker Does the pt drink ETOH?: Yes Does the pt have substance abuse?: No - Immunizations Immunizations are current?: No Immunizations: TDAP >10years/unknown PD ED PE NORMAL - Vitals Vital signs reviewed: Yes (hypertensive ) - General General: Alert and oriented X 3, No acute distress, Well developed/nourished - HEENT HEENT: Atraumatic, PERRL, EOMI - Respiratory Respiratory: No respiratory distress - Derm Derm: Normal color, Warm and dry, No rash - Extremities Extremities: No deformity, No edema, Other (There is a 4mm round area of recent bleeding that is now stopped over the lateral aspect of the right mid calf. 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, No motor deficit, No sensory deficit, Normal speech Eye Opening: Spontaneous Motor: Obeys Commands Verbal: Oriented GCS Score: 15 - Psych Psych: Normal mood, Normal affect Results - Vitals Vitals: Vital Signs - 24 hr 10/29/18 10/29/18 10/29/18 20:35 20:39 21:10 Temperature 36.6 C Heart Rate 85 66 58 L Respiratory 16 16 Rate Blood Pressure 168/107 H 146/98 H O2 Saturation 97 98 Oxygen O2 Source Room air Procedures - Laceration (location) right calf Length in cm: 0.4 Wound type: Clean, Other (round) Neurovascular status: Sensory intact, Motor intact, Vascular intact Skin layer closure: Dermabond Other: Patient tolerated well, No complications, Neurovascular intact, Dressing applied, Tetanus UTD Complexity: Simple PD MEDICAL DECISION MAKING - ED course Complexity details: re-evaluated patient, considered differential, d/w patient, d/w family ED course: 87-year-old female who was scratched a varicose vein and had bleeding from it has had bleeding controlled with direct pressure pull applied by the paramedics. The area under question has Dermabond applied over it and there is no further bleeding. Departure - Departure Disposition: 01 Home, Self Care Clinical Impression: Abrasion of right calf Qualifiers: Encounter type: initial encounter Qualified Code(s): S80.811A - Abrasion, right lower leg, initial encounter Condition: Stable Instructions: ED Laceration Ext Skin Glue Follow-Up: Tomas Fontenot MD [Primary Care Provider] - Discharge Date/Time: 10/29/18 21:31
[2018-10-29 21:11] VITALS: BP 146/98
== END 2018-10-29 21:31 | disposition home or self-care (01) ==
LOC: EDUNIT# → ED 20:38
DX: S80.811A Abrasion, right lower leg, initial encounter (principal); X58.XXXA Exposure to other specified factors, initial encounter; Y92.009 Unspecified place in unspecified non-institutional (private) residence as the place of occurrence of the external cause; I83.891 Varicose veins of right lower extremity with other complications; I48.91 Unspecified atrial fibrillation; Z79.01 Long term (current) use of anticoagulants; I10 Essential (primary) hypertension
CPT/HCPCS: 12001; 99283

== ENCOUNTER 2019-04-25 08:00 | Outpatient (CLI) | payer MEDICARE, OTHER ==
[2019-04-25 12:24] LABS: BASOPHILS # (AUTO) 0.1 10^3/uL (0.0-0.1); BASOPHILS % (AUTO) 1.2 %; EOSINOPHILS # (AUTO) 0.2 10^3/uL (0.0-0.7); EOSINOPHILS % (AUTO) 3.7 %; HGB - HEMOGLOBIN 12.7 g/dL (12.0-16.0); LYMPHOCYTES # (AUTO) 1.2 10^3/uL (1.5-3.5); LYMPHOCYTES % (AUTO) 28.4 %; MEAN CORPUSCULAR HEMOGLOBIN 31.8 pg (27.0-31.0); MEAN CORPUSCULAR VOLUME 96.5 fL (81.0-99.0); MEAN PLATELET VOLUME 9.8 fL (7.9-10.8); MONOCYTES # (AUTO) 0.6 10^3/uL (0.0-1.0); MONOCYTES % (AUTO) 15.3 %; NEUTROPHILS # (AUTO) 2.1 10^3/uL (1.5-6.6); NEUTROPHILS % (AUTO) 50.9 %; PLT - PLATELET COUNT 286 10^3/uL (130-450); RED BLOOD COUNT 3.99 10^6/uL (4.20-5.40); RED CELL DISTRIBUTION WIDTH 13.5 % (12.0-15.0); WHITE BLOOD COUNT 4.1 x10^3/uL (4.8-10.8)
[2019-04-25 13:14] LABS: HEMOGLOBIN A1C 0.53 g/dL; HEMOGLOBIN A1C % 5.9 % (4.6-6.2)
[2019-04-25 13:42] LABS: ALBUMIN/GLOBULIN RATIO 1.6 (1.0-2.2); ALKALINE PHOSPHATASE 56 IU/L (42-121); ALT ALANINE AMINOTRANSFERASE 15 IU/L (10-60); AST ASPARTATE AMINOTRANSFERASE 47 IU/L (10-42); BILIRUBIN,TOTAL 1.1 mg/dL (0.2-1.0); BUN - BLOOD UREA NITROGEN 14 mg/dL (6-20); CALCIUM 9.3 mg/dL (8.5-10.3); CARBON DIOXIDE - CO2 30 mmol/L (21-32); CHLORIDE 93 mmol/L (101-111); CHOL/HDL RATIO 2.4 (<4.4); CHOLESTEROL 236 mg/dL; CREATININE 0.7 mg/dL (0.4-1.0); GFR - MDRD 79 (>89); GLUCOSE 119 mg/dL (70-100); HDL CHOLESTEROL 98 mg/dL; LDL CHOLESTEROL,CALCULATED 123 mg/dL; LDL/HDL RATIO 1.3 (<4.4); SODIUM 133 mmol/L (135-145); TOTAL PROTEIN 6.5 g/dL (6.7-8.2); VLDL CHOLESTEROL 15 mg/dL
[2019-04-25 13:43] LABS: MICROALBUM/CREATININE RATIO,UR 33.3 ug/mg (<30.0); MICROALBUMIN,URINE 0.7 mg/dL (0-300.0)
== END 2019-04-25 23:59 | disposition home or self-care (01) ==
LOC: LAB.WCP 08:00
PROVIDERS: ATTEND Family Medicine
DX: E78.5 Hyperlipidemia, unspecified (principal); E11.9 Type 2 diabetes mellitus without complications; I10 Essential (primary) hypertension
CPT/HCPCS: 36415; 80053; 80061; 82043; 82570; 83036; 83721; 84443; 85025

== ENCOUNTER 2019-05-02 08:00 | Outpatient (CLI) | payer MEDICARE, OTHER ==
[2019-05-02 18:37] LABS: CALCIUM 9.2 mg/dL (8.5-10.3); CREATININE 0.8 mg/dL (0.4-1.0)
[2019-05-02 18:58] LABS: CREATININE,URINE 17.2 mg/dL; MICROALBUM/CREATININE RATIO,UR 34.9 ug/mg (<30.0); MICROALBUMIN,URINE 0.6 mg/dL (0-300.0)
== END 2019-05-02 23:59 | disposition home or self-care (01) ==
LOC: LAB.WCP 08:00
PROVIDERS: ATTEND Family Medicine
DX: I10 Essential (primary) hypertension (principal); E11.9 Type 2 diabetes mellitus without complications
CPT/HCPCS: 36415; 80048; 82043; 82570

== ENCOUNTER 2019-07-26 07:30 | Outpatient (CLI) | payer MEDICARE, OTHER ==
[2019-07-26 12:22] LABS: CALCIUM 9.2 mg/dL (8.5-10.3); CREATININE 0.8 mg/dL (0.4-1.0)
[2019-07-26 12:23] LABS: HB2 TOTAL 12.3 g/dL; HEMOGLOBIN A1C 0.49 g/dL; HEMOGLOBIN A1C % 5.8 % (4.6-6.2)
== END 2019-07-26 23:59 | disposition home or self-care (01) ==
LOC: LAB.WCP 07:30
PROVIDERS: ATTEND Family Medicine
DX: I10 Essential (primary) hypertension (principal); E11.9 Type 2 diabetes mellitus without complications
CPT/HCPCS: 36415; 80048; 83036

== ENCOUNTER 2019-10-27 07:44 | Outpatient (CLI) | payer MEDICARE, OTHER ==
[2019-10-27 12:04] LABS: BASOPHILS # (AUTO) 0.1 10^3/uL (0.0-0.1); BASOPHILS % (AUTO) 1.2 %; EOSINOPHILS # (AUTO) 0.2 10^3/uL (0.0-0.7); EOSINOPHILS % (AUTO) 5.7 %; HGB - HEMOGLOBIN 11.7 g/dL (12.0-16.0); LYMPHOCYTES # (AUTO) 1.6 10^3/uL (1.5-3.5); LYMPHOCYTES % (AUTO) 38.9 %; MEAN CORPUSCULAR HEMOGLOBIN 32.7 pg (27.0-31.0); MEAN CORPUSCULAR HGB CONC 32.2 g/dL (32.0-36.0); MEAN CORPUSCULAR VOLUME 101.4 fL (81.0-99.0); MEAN PLATELET VOLUME 10.6 fL (7.9-10.8); MONOCYTES # (AUTO) 0.6 10^3/uL (0.0-1.0); MONOCYTES % (AUTO) 14.9 %; NEUTROPHILS # (AUTO) 1.7 10^3/uL (1.5-6.6); NEUTROPHILS % (AUTO) 39.3 %; PLT - PLATELET COUNT 225 10^3/uL (130-450); RED BLOOD COUNT 3.58 10^6/uL (4.20-5.40); RED CELL DISTRIBUTION WIDTH 14.6 % (12.0-15.0); WHITE BLOOD COUNT 4.2 x10^3/uL (4.8-10.8)
[2019-10-27 12:32] LABS: ALBUMIN 3.9 g/dL (3.2-5.5); ALBUMIN/GLOBULIN RATIO 1.5 (1.0-2.2); CALCIUM 9.1 mg/dL (8.5-10.3); CREATININE 0.9 mg/dL (0.4-1.0); TOTAL PROTEIN 6.5 g/dL (6.7-8.2)
== END 2019-10-27 23:59 | disposition home or self-care (01) ==
LOC: LAB.WCP 07:44
PROVIDERS: ATTEND Family Medicine
DX: E11.9 Type 2 diabetes mellitus without complications (principal); M54.2 Cervicalgia; R60.0 Localized edema; I10 Essential (primary) hypertension; E78.5 Hyperlipidemia, unspecified
CPT/HCPCS: 36415; 80053; 85025

== ENCOUNTER 2020-01-25 08:00 | Outpatient (CLI) | payer MEDICARE, OTHER ==
[2020-01-25 13:22] LABS: ALBUMIN/GLOBULIN RATIO 1.6 (1.0-2.2); BILIRUBIN,TOTAL 1.2 mg/dL (0.2-1.0); CALCIUM 9.5 mg/dL (8.5-10.3); CREATININE 0.9 mg/dL (0.4-1.0); TOTAL PROTEIN 6.5 g/dL (6.7-8.2)
[2020-01-25 13:55] LABS: HEMOGLOBIN A1c% 5.9 % (4.27-6.07)
[2020-01-25 13:56] LABS: CREATININE,URINE 158.2 mg/dL; MICROALBUM/CREATININE RATIO,UR 419.1 ug/mg (<30.0); MICROALBUMIN,URINE 66.3 mg/dL (0-300.0)
== END 2020-01-25 23:59 | disposition home or self-care (01) ==
LOC: LAB.WCP 08:00
PROVIDERS: ATTEND Family Medicine
DX: I10 Essential (primary) hypertension (principal); E11.9 Type 2 diabetes mellitus without complications
CPT/HCPCS: 36415; 80053; 82043; 82570; 83036

== ENCOUNTER 2020-08-14 08:00 | Outpatient (CLI) | payer MEDICARE, OTHER ==
[2020-08-14 17:48] LABS: BASOPHILS % (AUTO) 0.5 %; EOSINOPHILS # (AUTO) 0.2 10^3/uL (0.0-0.7); EOSINOPHILS % (AUTO) 3.1 %; HCT - HEMATOCRIT 38.9 % (37.0-47.0); HGB - HEMOGLOBIN 12.4 g/dL (12.0-16.0); LYMPHOCYTES # (AUTO) 1.5 10^3/uL (1.5-3.5); LYMPHOCYTES % (AUTO) 26.1 %; MEAN CORPUSCULAR HEMOGLOBIN 32.1 pg (27.0-31.0); MEAN CORPUSCULAR HGB CONC 31.9 g/dL (32.0-36.0); MEAN CORPUSCULAR VOLUME 100.8 fL (81.0-99.0); MONOCYTES # (AUTO) 0.6 10^3/uL (0.0-1.0); MONOCYTES % (AUTO) 10.6 %; NEUTROPHILS # (AUTO) 3.3 10^3/uL (1.5-6.6); NEUTROPHILS % (AUTO) 59.3 %; PLT - PLATELET COUNT 240 10^3/uL (130-450); RED BLOOD COUNT 3.86 10^6/uL (4.20-5.40); RED CELL DISTRIBUTION WIDTH 14.1 % (12.0-15.0); WHITE BLOOD COUNT 5.6 x10^3/uL (4.8-10.8)
[2020-08-14 18:11] LABS: ALBUMIN 4.2 g/dL (3.2-5.5); ALBUMIN/GLOBULIN RATIO 1.7 (1.0-2.2); ALKALINE PHOSPHATASE 69 IU/L (42-121); ALT ALANINE AMINOTRANSFERASE 17 IU/L (10-60); AST ASPARTATE AMINOTRANSFERASE 46 IU/L (10-42); BILIRUBIN,TOTAL 0.6 mg/dL (0.2-1.0); BUN - BLOOD UREA NITROGEN 25 mg/dL (6-20); CALCIUM 9.5 mg/dL (8.5-10.3); CARBON DIOXIDE - CO2 30 mmol/L (21-32); CHLORIDE 99 mmol/L (101-111); CHOL/HDL RATIO 2.8 (<4.4); CHOLESTEROL 221 mg/dL; GFR - MDRD 52 (>89); GLUCOSE 117 mg/dL (70-100); HDL CHOLESTEROL 80 mg/dL; LDL CHOLESTEROL,CALCULATED 115 mg/dL; LDL/HDL RATIO 1.4 (<4.4); SODIUM 140 mmol/L (135-145); TOTAL PROTEIN 6.7 g/dL (6.7-8.2); TRIGLYCERIDES 132 mg/dL; VLDL CHOLESTEROL 26 mg/dL
[2020-08-14 18:17] LABS: CREATININE,URINE 85.2 mg/dL; MICROALBUM/CREATININE RATIO,UR 110.3 ug/mg (<30.0); MICROALBUMIN,URINE 9.4 mg/dL (0-300.0)
[2020-08-14 18:22] LABS: THYROID STIMULATING HORMONE 2.55 uIU/mL (0.34-5.60)
[2020-08-14 21:06] LABS: ESTIMATED AVERAGE GLUCOSE 120 mg/dL (70-100); HEMOGLOBIN A1c% 5.8 % (4.27-6.07)
== END 2020-08-14 23:59 | disposition home or self-care (01) ==
LOC: LAB.WCP 08:00
PROVIDERS: ATTEND Internal Medicine
DX: E11.9 Type 2 diabetes mellitus without complications (principal); I48.91 Unspecified atrial fibrillation
CPT/HCPCS: 36415; 80053; 80061; 82043; 82570; 83036; 83721; 84443; 85025

== ENCOUNTER 2021-05-23 10:24 | Outpatient (CLI) | payer MEDICARE, OTHER ==
[2021-05-23 11:55] LABS: BASOPHILS # (AUTO) 0.1 10^3/uL (0.0-0.1); BASOPHILS % (AUTO) 1.1 %; EOSINOPHILS # (AUTO) 0.2 10^3/uL (0.0-0.7); HCT - HEMATOCRIT 39.4 % (37.0-47.0); HGB - HEMOGLOBIN 13.1 g/dL (12.0-16.0); LYMPHOCYTES # (AUTO) 1.2 10^3/uL (1.5-3.5); LYMPHOCYTES % (AUTO) 26.6 %; MEAN CORPUSCULAR HEMOGLOBIN 32.4 pg (27.0-31.0); MEAN CORPUSCULAR HGB CONC 33.2 g/dL (32.0-36.0); MEAN CORPUSCULAR VOLUME 97.5 fL (81.0-99.0); MEAN PLATELET VOLUME 10.5 fL (7.9-10.8); MONOCYTES # (AUTO) 0.7 10^3/uL (0.0-1.0); MONOCYTES % (AUTO) 15.8 %; NEUTROPHILS # (AUTO) 2.4 10^3/uL (1.5-6.6); NEUTROPHILS % (AUTO) 52.1 %; PLT - PLATELET COUNT 258 10^3/uL (130-450); RED BLOOD COUNT 4.04 10^6/uL (4.20-5.40); RED CELL DISTRIBUTION WIDTH 13.9 % (12.0-15.0); WHITE BLOOD COUNT 4.6 x10^3/uL (4.8-10.8)
[2021-05-23 12:22] LABS: THYROID STIMULATING HORMONE 3.06 uIU/mL (0.34-5.60)
[2021-05-23 12:24] LABS: ALBUMIN 4.1 g/dL (3.2-5.5); ALBUMIN/GLOBULIN RATIO 1.6 (1.0-2.2); ALKALINE PHOSPHATASE 71 IU/L (42-121); ALT ALANINE AMINOTRANSFERASE 17 IU/L (10-60); AST ASPARTATE AMINOTRANSFERASE 48 IU/L (10-42); BILIRUBIN,TOTAL 0.7 mg/dL (0.2-1.0); BUN - BLOOD UREA NITROGEN 26 mg/dL (6-20); CALCIUM 9.6 mg/dL (8.5-10.3); CARBON DIOXIDE - CO2 31 mmol/L (21-32); CHLORIDE 96 mmol/L (101-111); CHOL/HDL RATIO 2.7 (<4.4); CHOLESTEROL 231 mg/dL; GFR - MDRD 52 (>89); GLUCOSE 93 mg/dL (70-100); HDL CHOLESTEROL 85 mg/dL; LDL CHOLESTEROL,CALCULATED 127 mg/dL; LDL/HDL RATIO 1.5 (<4.4); POTASSIUM 3.7 mmol/L (3.5-5.0); SODIUM 136 mmol/L (135-145); TOTAL PROTEIN 6.7 g/dL (6.7-8.2); TRIGLYCERIDES 93 mg/dL; VLDL CHOLESTEROL 19 mg/dL
[2021-05-23 12:26] LABS: MICROALBUM/CREATININE RATIO,UR 154.3 ug/mg (<30.0); MICROALBUMIN,URINE 5.4 mg/dL (0-300.0)
[2021-05-23 13:24] LABS: ESTIMATED AVERAGE GLUCOSE 126 mg/dL (70-100)
== END 2021-05-23 10:25 | disposition home or self-care (01) ==
LOC: LAB.N 10:24
PROVIDERS: ATTEND Internal Medicine
DX: I10 Essential (primary) hypertension (principal); E78.5 Hyperlipidemia, unspecified; E11.29 Type 2 diabetes mellitus with other diabetic kidney complication; I48.21 Permanent atrial fibrillation
CPT/HCPCS: 36415; 80053; 80061; 82043; 82570; 83036; 83721; 84443; 85025

== ENCOUNTER 2021-07-02 22:20 | Emergency (ER) | payer MEDICARE, OTHER ==
--- NOTE | 2021-07-02 22:52 | ED Physician Documentation ---
PD HPI LOWER EXT INJURY - Stated complaint Stated Complaint: LT FOOT BLEED & INJ/BLOOD THINNERS - Chief complaint Chief Complaint: Laceration - History obtained from History obtained from: Patient - Additional information Additional information: Patient is an 89-year-old female with a history of A. fib on Xarelto presenting for evaluation of wound to her left ankle. Patient was getting ready for bed and when removing her close she accidentally removed a scab that was on the ankle. There was bleeding which she was able to control with a pressure dressing. She was concerned that it would rebleed and presented for evaluation. Her tetanus is up-to-date. She denies other injuries. Review of Systems Constitutional: denies: Fever Nose: denies: Congestion Cardiac: denies: Chest pain / pressure Respiratory: denies: Dyspnea GI: denies: Abdominal Pain Skin: reports: Laceration (s) Musculoskeletal: denies: Joint pain Neurologic: denies: Head injury PD PAST MEDICAL HISTORY - Past Medical History Past Medical History: Yes Cardiovascular: Hypertension, Atrial fibrillation Respiratory: None Neuro: None Endocrine/Autoimmune: None GI: None : None HEENT: None Psych: None Musculoskeletal: None Derm: None - Past Surgical History Past Surgical History: Yes General: Appendectomy Ortho: Knee replacement /[employer]: Hysterectomy Cardiovascular: Pacemaker HEENT: Cataracts - Present Medications Home Medications: Ambulatory Orders Medication Instructions Recorded Confirmed Clonidine HCl [Kapvay] 0.1 mg PO BID 04/10/13 07/02/21 Nebivolol HCl [Bystolic] 10 mg PO DAILY 04/10/13 07/02/21 Rivaroxaban [Xarelto] 10 mg PO DAILY 06/12/14 07/02/21 - Allergies Allergies/Adverse Reactions: Allergies Allergy/AdvReac Type Severity Reaction Status Date / Time amlodipine Allergy confusion Verified 07/02/21 22:30 cefuroxime axetil * Allergy Unknown Verified 07/02/21 22:30 [From Ceftin] lisinopril Allergy facial Verified 07/02/21 22:30 swelling propranolol HCl * Allergy Unknown Verified 07/02/21 22:30 [From Inderal LA] verapamil [Verapamil] Allergy Unknown Verified 07/02/21 22:30 - Social History Does the pt smoke?: No Smoking Status: Never smoker Does the pt drink ETOH?: Yes Does the pt have substance abuse?: No - Immunizations Immunizations are current?: Yes Immunizations: TDAP >10years/unknown PD ED PE NORMAL - General General: Alert and oriented X 3, No acute distress, Well developed/nourished - HEENT HEENT: Atraumatic - Respiratory Respiratory: No respiratory distress - Derm Derm: Normal color, No rash, Other (2 mm abrasion to left medial ankle With no swelling or active bleeding) - Extremities Extremities: No deformity, Other (Left extremity is warm, well-perfused, Distal pulses intact) - Neuro Neuro: No motor deficit, No sensory deficit - Psych Psych: Normal mood PD ED PE EXPANDED - Extremities FARRUKH LE visual: 1 - abrasion Results - Vitals Vitals: Vital Signs - 24 hr 07/02/21 07/02/21 22:27 23:01 Temperature 36.5 C Heart Rate 95 92 Respiratory 18 18 Rate Blood Pressure 188/107 H 178/98 H O2 Saturation 97 98 Oxygen O2 Source Room air Procedures - Laceration (location) Left medial ankle Length in cm: 0.2 (2mm) Wound type: Other (Circular, Superficial) Neurovascular status: Sensory intact, Motor intact, Vascular intact Tendon involvement: Tendon intact Wound preparation: Hibiclens (Cleaned with saline), Other Skin layer closure: Dermabond Other: Patient tolerated well, No complications, Neurovascular intact, Dressing applied, Tetanus UTD PD MEDICAL DECISION MAKING - ED course ED course: Patient with superficial wound to theLeft medial ankle. Bleeding is controlled upon arrival. Small mount of Dermabond was applied to the wound to prevent any rebleeding and a dressing was applied. No injuries noted elsewhere. Departure - Departure Disposition: 01 Home, Self Care Clinical Impression: Abrasion, left ankle, initial encounter Condition: Stable Instructions: ED Laceration Ext Skin Glue Comments: Karen - Your evaluated for a small wound to your left ankle. The bleeding had stopped and we applied a skin glueTo make sure it does not rebleed. A dressing was also placed. You can remove the dressing in the morningAnd shower per your usual routine. I would not scrub at this area until the wound heals.If you have any further bleeding, please apply pressure. If bleeding does not stop then return to the emergency department. Discharge Date/Time: 07/02/21 23:03
[2021-07-02 23:01] VITALS: BP 178/98
== END 2021-07-02 23:03 | disposition home or self-care (01) ==
LOC: ED 22:20
DX: S90.512A Abrasion, left ankle, initial encounter (principal); X58.XXXA Exposure to other specified factors, initial encounter; I48.91 Unspecified atrial fibrillation; Z79.01 Long term (current) use of anticoagulants; I10 Essential (primary) hypertension; Z95.0 Presence of cardiac pacemaker
CPT/HCPCS: 12001; 99281

== ENCOUNTER 2022-03-21 07:41 | Outpatient (CLI) | payer MEDICARE, OTHER ==
[2022-03-21 12:21] LABS: BASOPHILS % (AUTO) 0.9 %; EOSINOPHILS # (AUTO) 0.2 10^3/uL (0.0-0.7); EOSINOPHILS % (AUTO) 4.5 %; HCT - HEMATOCRIT 39.1 % (37.0-47.0); HGB - HEMOGLOBIN 12.9 g/dL (12.0-16.0); LYMPHOCYTES # (AUTO) 1.6 10^3/uL (1.5-3.5); MEAN CORPUSCULAR HEMOGLOBIN 32.7 pg (27.0-31.0); MEAN PLATELET VOLUME 10.8 fL (7.9-10.8); MONOCYTES # (AUTO) 0.6 10^3/uL (0.0-1.0); MONOCYTES % (AUTO) 13.6 %; NEUTROPHILS % (AUTO) 44.6 %; PLT - PLATELET COUNT 244 10^3/uL (130-450); RED BLOOD COUNT 3.95 10^6/uL (4.20-5.40); RED CELL DISTRIBUTION WIDTH 13.9 % (12.0-15.0); WHITE BLOOD COUNT 4.5 x10^3/uL (4.8-10.8)
[2022-03-21 12:30] LABS: CREATININE,URINE 141.9 mg/dL; MICROALBUMIN,URINE 4.4 mg/dL (0-300.0)
[2022-03-21 12:38] LABS: ALBUMIN 3.9 g/dL (3.2-5.5); ALBUMIN/GLOBULIN RATIO 1.4 (1.0-2.2); ALKALINE PHOSPHATASE 55 IU/L (42-121); ALT ALANINE AMINOTRANSFERASE 13 IU/L (10-60); AST ASPARTATE AMINOTRANSFERASE 42 IU/L (10-42); BILIRUBIN,TOTAL 1.1 mg/dL (0.2-1.0); BUN - BLOOD UREA NITROGEN 19 mg/dL (6-20); CALCIUM 9.4 mg/dL (8.5-10.3); CARBON DIOXIDE - CO2 30 mmol/L (21-32); CHLORIDE 98 mmol/L (101-111); CHOL/HDL RATIO 2.5 (<4.4); CHOLESTEROL 211 mg/dL; CREATININE 0.9 mg/dL (0.4-1.0); GFR - MDRD 59 (>89); GLUCOSE 117 mg/dL (70-100); HDL CHOLESTEROL 83 mg/dL; LDL CHOLESTEROL,CALCULATED 112 mg/dL; LDL/HDL RATIO 1.3 (<4.4); POTASSIUM 3.2 mmol/L (3.5-5.0); SODIUM 138 mmol/L (135-145); TOTAL PROTEIN 6.6 g/dL (6.7-8.2); TRIGLYCERIDES 80 mg/dL; VLDL CHOLESTEROL 16 mg/dL
[2022-03-21 12:43] LABS: ESTIMATED AVERAGE GLUCOSE 123 mg/dL (70-100); HEMOGLOBIN A1c% 5.9 % (4.27-6.07)
[2022-03-21 12:48] LABS: THYROID STIMULATING HORMONE 3.87 uIU/mL (0.34-5.60)
== END 2022-03-21 07:42 | disposition home or self-care (01) ==
LOC: LAB.N 07:41
PROVIDERS: ATTEND Internal Medicine
DX: E11.29 Type 2 diabetes mellitus with other diabetic kidney complication (principal); E78.5 Hyperlipidemia, unspecified; F43.20 Adjustment disorder, unspecified; I48.21 Permanent atrial fibrillation
CPT/HCPCS: 36415; 80053; 80061; 82043; 82570; 83036; 83721; 84443; 85025

== ENCOUNTER 2022-08-18 07:29 | Outpatient (CLI) | payer MEDICARE, OTHER ==
[2022-08-18 12:16] LABS: CALCIUM 9.3 mg/dL (8.5-10.3)
[2022-08-18 12:45] LABS: ESTIMATED AVERAGE GLUCOSE 117 mg/dL (70-100); HEMOGLOBIN A1c% 5.7 % (4.27-6.07)
== END 2022-08-18 07:30 | disposition home or self-care (01) ==
LOC: LAB.N 07:29
PROVIDERS: ATTEND Internal Medicine
DX: I10 Essential (primary) hypertension (principal); E11.29 Type 2 diabetes mellitus with other diabetic kidney complication
CPT/HCPCS: 36415; 80048; 83036

== ENCOUNTER 2022-08-25 12:38 | Outpatient (CLI) | payer MEDICARE, OTHER | END 2022-08-25 12:39 | disposition home or self-care (01) | LOC: LAB.N 12:38 | PROVIDERS: ATTEND Internal Medicine | DX: I11.9 Hypertensive heart disease without heart failure (principal) | CPT/HCPCS: 36415; 83880 ==